=== PATIENT | female | born 1995 | race Caucasian/White ===

== ENCOUNTER 2017-02-10 05:33 | Observation (INO) | payer BC ==
[2017-02-05 13:50] VITALS: BMI 32.0
--- NOTE | 2017-02-05 14:20 | PAT Medication Instructions ---
Service Date February 05, 2017. Current Home Medication List Fluoxetine (Prozac), 40 MG PO BID Omeprazole (Prilosec), 40 MG PO QAM Trazodone Hcl (Trazodone), 50 MG PO HS Medication Instructions For Your Scheduled Surgery - Take the following medications the morning of surgery with a sip of water: Omeprazole (Prilosec), 40 MG PO QAM Fluoxetine (Prozac), 40 MG PO BID - Take the following medications as scheduled the night before surgery: Trazodone Hcl (Trazodone), 50 MG PO HS Fluoxetine (Prozac), 40 MG PO BID If you have any questions please call us at [phone] or [phone] ( Camila) or [phone]
[2017-02-05 15:16] LABS: BASO % 0.4 %; BASO ABS # 0.03 K/uL (0-0.2); COMPLETE YES; HEMATOCRIT 40.5 % (37-47); LYMPH % 23.1 %; LYMPH ABS # 1.69 K/uL (1.2-3.4); MEAN CELL VOLUME 88.8 fL (80-100); MEAN CORPUSCULAR HEMOGLOBIN 28.5 pg (25-34); MEAN CORPUSCULAR HGB CONC 32.1 g/dl (32-36); MEAN PLATELET VOLUME 9.6 fL (7.4-10.4); MONO % 6.6 %; NEUT % 68.9 %; PLATELET COUNT 310 K/uL (130-400); RED BLOOD COUNT 4.56 M/uL (4.2-5.4); WHITE BLOOD COUNT 7.32 K/uL (4.8-10.8)
[2017-02-05 15:33] LABS: PROTHROMBIN TIME (PATIENT) 10.2 SECONDS (9.0-12.0)
[2017-02-05 16:21] LABS: CALCIUM 8.8 mg/dl (8.5-10.1); CREATININE 0.8 mg/dl (0.60-1.20); POTASSIUM 4.7 mmol/L (3.5-5.1)
[~2017-02-10] VITALS: Ht 160 cm; Wt 83.4 kg
[2017-02-10] VITALS (9 sets, daily range): BP systolic 106–125; BP diastolic 68–80; PULSE 69–89; TEMP 36.7–37.1; O2SAT 91–99; Ht 160 cm; Wt 83.4 kg
[~2017-02-10 05:33] MED LIST: FLUO40CA8 PO; PRLSR20 PO; TRAZ50TA35 PO
[2017-02-10] MEDS ORDERED: ENOXAPARIN 40 MG/0.4 ML SYR SQ SCH (06:00)
[2017-02-10] MEDS ORDERED: LACTATED RINGER'S 1000ML 1,000 ML IV SCH (06:00)
[2017-02-10] MEDS ORDERED: CEFAZOLIN 2000 MG/60 ML D5W IV SCH (06:00)
[2017-02-10] MEDS ORDERED: ROCURONIUM BROMIDE 10 MG/ML 5 ML VIAL ONE (06:29)
[2017-02-10] MEDS ORDERED: GLYCOPYRROLATE INJ 0.2 MG/ML VIAL ONE (06:29)
[2017-02-10] MEDS ORDERED: DEXAMETHASONE SOD INJ 4 MG/ML VIAL ONE (06:29)
[2017-02-10] MEDS ORDERED: HYDROmorphone INJ 2 MG/ML SYR/VIAL ONE (06:29)
[2017-02-10] MEDS ORDERED: FENTANYL CITRATE INJ 50 MCG/1 ML 2 ML VIAL ONE ×3 (06:29→10:21)
[2017-02-10] MEDS ORDERED: PROPOFOL IV EMULSION 10 MG/ML 20 ML VIAL IV ONE ×2 (06:29→09:26)
[2017-02-10] MEDS ORDERED: LIDOCAINE HCL 2% 2 ML VIAL (20MG/ML) ONE (06:29)
[2017-02-10] MEDS ORDERED: MIDAZOLAM HCL 1 MG/ML 2ML VIAL ONE (06:29)
[2017-02-10] MEDS ORDERED: NEOSTIGMINE METHYLSULFATE 5 MG/5 ML SYR ONE (06:29)
[2017-02-10] MEDS ORDERED: ONDANSETRON INJ 2 MG/ML 2 ML VIAL ONE ×3 (06:29→07:36)
[2017-02-10] MEDS ORDERED: LARYING-O-JET KIT (LTA) EXT ONE ×2 (06:47)
--- NOTE | 2017-02-10 06:58 | History & Physical Bridge Note ---
H&P Re-Evaluation Bridge Note: I have examined the patient, reviewed the History & Physical and in the interval since the performance of the History & Physical I have noted the following changes of clinical significance: No changes noted
[2017-02-10] MEDS ORDERED: BUPIVACAINE 0.25% 30 ML VIAL ONE (07:03)
[2017-02-10] MEDS ORDERED: LIDOCAINE/EPINEPHRINE 1% 20 ML VIAL ONE (07:03)
[2017-02-10] MEDS ORDERED: NURSING VERBAL MED ORDER ONE (07:18)
[2017-02-10] MEDS ORDERED: SCOPOLAMINE 1.5 MG TDSY TD ONE (07:19)
[2017-02-10] MEDS ORDERED: ESMOLOL HCL 10 MG/ML 10 ML VIAL ONE (07:54)
[2017-02-10] MEDS ORDERED: ONDANSETRON INJ 2 MG/ML 2 ML VIAL IV PRN ×2 (08:00→11:00)
[2017-02-10] MEDS ORDERED: HYDROmorphone INJ 1 MG/ML SYR IV PRN (08:00)
[2017-02-10] MEDS ORDERED: ATROPINE SULFATE 0.1 MG/ML 5ML SYR IV PRN (08:00)
[2017-02-10] MEDS ORDERED: EpHEDrine SULFATE INJ 50 MG/ML AMP IV PRN (08:00)
--- NOTE | 2017-02-10 10:52 | [facility] Post Operative Brief Note ---
Immediate Operative Summary Operative Date February 10, 2017. Pre-Operative Diagnosis Bilateral Breast Hypertrophy Post-Operative Diagnosis Bilateral Breast Hypertrophy Procedure(s) Performed Bilateral Breast Reduction Surgeon Dr. Aponte Seed Analyst Surgeon(s) Sobeida Marie Estimated Blood Loss 25 ml Findings bilateral NACs pink and viable at close of case Specimens Permanent Specimens A: Left Breast Tissue =628 Grams B: Right Breast Tissue = 490 Grams Drains PAM x2 Anesthesia GET Complication(s) None Disposition Recovery Room / PACU
[2017-02-10] MEDS ORDERED: ACETAMINOPHEN 325 MG TAB PO PRN (11:00)
[2017-02-10] MEDS ORDERED: DiphenhydrAMINE HCL 50 MG/ML VIAL IV PRN (11:00)
[2017-02-10] MEDS ORDERED: OXYCODONE/ACETAMINOPHEN 5-325 TAB PO PRN (11:00)
[2017-02-10] MEDS ORDERED: MoRPHine SULFATE 2 MG/ML CARP IV PRN ×2 (11:00)
[2017-02-10] MEDS ORDERED: MoRPHine SULFATE 4 MG/ML 1 ML CARP\\VIAL IV PRN (11:00)
[2017-02-10] MEDS ORDERED: OXAZEPAM 10MG CAP PO PRN (11:00)
[2017-02-10] MEDS ORDERED: PROMETHAZINE HCL INJ 12.5 MG in SODIUM CHLORIDE 0.9% 50ML 50 ML IV PRN (11:00)
[2017-02-10] MEDS: FENTANYL CITRATE INJ 50 MCG/1 ML 2 ML VIAL IV PRN ×4 (11:15→11:30)
[2017-02-10] MEDS ORDERED: IV FLUIDS COMPLETED PRN (12:00)
--- NOTE | 2017-02-10 12:27 | Anesthesiology Progress Note ---
Anesthesia Post Op Note Date & Time February 10, 2017 at 12:27 Vital Signs Pain Intensity: 3 Vital Signs Past 12 Hours Date Time Temp Pulse Resp B/P Pulse Ox O2 Delivery O2 Flow Rate FiO2 02/10/17 11:52 36.4 02/10/17 11:51 135/74 02/10/17 11:48 90 15 02/10/17 11:48 90 15 97 02/10/17 11:46 138/74 02/10/17 11:43 88 17 02/10/17 11:43 87 17 97 02/10/17 11:41 134/71 02/10/17 11:38 89 15 02/10/17 11:38 86 15 97 02/10/17 11:36 134/69 02/10/17 11:33 90 14 02/10/17 11:33 91 14 97 02/10/17 11:31 136/67 02/10/17 11:28 Nasal Cannula 3 02/10/17 11:28 90 15 97 02/10/17 11:28 90 15 02/10/17 11:26 135/65 02/10/17 11:23 91 15 02/10/17 11:23 89 15 97 02/10/17 11:21 126/68 02/10/17 11:20 125/65 02/10/17 11:08 36.6 87 16 125/65 97 Mask 10 02/10/17 05:58 36.7 69 16 106/68 99 Room Air Notes Mental Status: alert / awake / arousable, participated in evaluation Pt Amnestic to Procedure: Yes Nausea / Vomiting: adequately controlled Pain: adequately controlled Airway Patency, RR, SpO2: stable & adequate BP & HR: stable & adequate Hydration State: stable & adequate Anesthetic Complications: no major complications apparent
[2017-02-10] MEDS: LACTATED RINGER'S 1000ML 1,000 ML IV SCH ×2 (13:15→23:43)
[2017-02-10] MEDS: CEFAZOLIN IV 2,000 MG in DEXTROSE 5% 50ML 50 ML IV SCH ×2 (15:35→23:43)
--- NOTE | 2017-02-10 16:54 | OPERATIVE REPORT ---
DATE OF OPERATION: 02/10/2017 PREOPERATIVE DIAGNOSIS: Bilateral symptomatic macromastia. POSTOPERATIVE DIAGNOSIS: Same. PROCEDURE: Bilateral reduction mammoplasty with inferior pedicle. SURGEON: Lisset Aponte MD [employer] ARCHITECT: Sobeida Barney PA-C ANESTHESIA: General. COMPLICATIONS: None. INDICATION FOR THE PROCEDURE: The patient is a 21-year-old female who presented to my office as a 36 double G bra size with complaints of neck, shoulder pain as well as headaches that failed conservative measures to improve her symptoms. After discussion, she elects to proceed with breast reduction surgery. BRIEF DESCRIPTION OF THE PROCEDURE: The risks, benefits and alternatives of the procedure were explained to the patient who agreed and signed consent. She was identified and marked in the preoperative holding area. She was brought to the operating room where she was positioned supine and placed under anesthesia without incident. Surgical site was prepped and draped sterilely. A time-out procedure was performed. I began with the left side which was the larger of the 2 breasts. The markings were reassessed and a 7 cm pedicle was marked. A 1% lidocaine with epinephrine was used to anesthetize the planned incisions. A 38 mm cookie cutter was used to circumscribe the nipple-areolar complex. The previously marked 7 cm pedicle was incised using a 15 blade scalpel and deepithelialized. I began with medial dissection of the pedicle using electrocautery. Cautery was used to incise through dermis and breast parenchyma and down the chest wall, taking care not to undermine the pedicle during dissection. A similar procedure was undertaken on the lateral aspect of the pedicle again taking care not to undermine. Lastly, the pedicle was dissected out superiorly using electrocautery. This was carried down to chest wall. I then began excision of medial breast tissue followed by lateral aspect of the breast tissue. A 15 blade scalpel was used to make the inframammary fold incision. Electrocautery was used to deepen the incision through dermis and breast parenchyma. Dissection was then carried superiorly to the level of the superior incision. Superior incision was then incised using 15 blade scalpel and again dissected using electrocautery. A similar procedure was taken laterally and then around the keyhole portion of the incision. Care was taken to leave some fat on the lateral pectoral fascia in order to protect the T4 intercostal nerve. Hemostasis was achieved with electrocautery. Specimen was removed in its entirety and passed off for weighing. Additional resection was undertaken until a maximal resection weight of 628 grams was achieved on the left side and there was uniform pedicle and flap. I did try to dissect the pedicle more in a central mound type of technique underneath the nipple in order to preserve more glandular brush tissue and ducts due to the patient's young age and desire for a childbearing and . The wound was irrigated with normal saline. Hemostasis was achieved with electrocautery. A 0.25% Marcaine plain was used to anesthetize the incisions as well as pectoralis fascia. A 15-Tamazight Vinicio drain was brought out through a separate stab incision. The nipple-areolar complex was advanced into the keyhole using 2-0 Vicryl deep dermal suture. Wound was first closed in a lateral to mid breast direction using 2-0 Vicryl deep dermals and then medial to mid breast using 2-0 Vicryl deep dermals. The vertical limb was also approximated using 2-0 Vicryl deep dermal sutures. The nipple-areolar complex was inset using 2-0 Vicryl deep dermal sutures. Next, the superficial dermal layer was closed using 2-0 PDO running Quill suture along the inframammary fold and 3-0 PDS for the vertical limb and nipple-areolar complex closures. Lastly, a 3-0 Monocryl running subcuticular suture was placed. A similar procedure was undertaken on the right side with maximal resection weight of 490 grams. At the end of the case, both nipple-areolar complexes were pink and viable without evidence of vascular compromise. The breasts appeared reasonably symmetric. Dermabond was placed around the nipple-areolar complex, and the inframammary folds as well as vertical limb incisions were dressed using Dermabond Prineo. Following this, Dermabond and dry dressing and surgical bra were placed. The patient was awakened and transferred to the recovery room in satisfactory condition. Sobeida Barney was present and scrubbed throughout the entire procedure and was instrumental in providing retraction during dissection of the pedicle as well as assisting in simultaneous wound closure. I attest to the content of the Intraoperative Record and any orders documented therein. Any exceptions are noted below. DIONI
[2017-02-10] MEDS: OXYCODONE/ACETAMINOPHEN 5-325 TAB PO PRN ×2 (18:06→21:03)
[2017-02-10] MEDS: FLUOXETINE HCL 20 MG CAP PO SCH (20:59)
[2017-02-10] MEDS ORDERED: TRAZODONE HCL 50 MG TAB PO SCH (21:00)
[2017-02-11 03:15] VITALS: BP 111/79; PULSE 89; TEMP 36.2; O2SAT 90
[2017-02-11] MEDS: OXYCODONE/ACETAMINOPHEN 5-325 TAB PO PRN (03:37)
[2017-02-11 03:45] VITALS: TEMP 37.1
[2017-02-11] MEDS: FLUOXETINE HCL 20 MG CAP PO SCH (07:31)
[2017-02-11 07:39] VITALS: BP 112/74; PULSE 97; TEMP 37.4; O2SAT 91
--- NOTE | 2017-02-11 08:17 | Surgery Progress Note ---
Surgery Progress Note Date of Service February 11, 2017. Subjective Post OP Day: 1 + complaints (itchy), + feeling well, + pain controlled Objective Vital Signs: Date Time Temp Pulse Resp B/P Pulse Ox O2 Delivery O2 Flow Rate FiO2 02/11/17 07:39 37.4 97 16 112/74 91 Room Air 02/11/17 03:45 37.1 02/11/17 03:15 36.2 89 18 111/79 90 Room Air 02/10/17 23:30 91 Room Air 02/10/17 23:15 37.1 89 16 110/74 92 Room Air 02/10/17 19:30 37.1 78 16 119/79 92 Room Air 02/10/17 16:05 36.8 89 16 125/79 99 Nasal Cannula 2.0 02/10/17 15:30 Nasal Cannula 2.0 02/10/17 15:05 36.9 80 16 124/80 97 Nasal Cannula 2.0 02/10/17 14:05 81 16 117/78 97 2.0 02/10/17 13:35 36.9 82 16 116/77 98 2.0 02/10/17 13:05 97 Nasal Cannula 2.0 02/10/17 13:05 37.0 86 16 114/71 97 Nasal Cannula 2.0 02/10/17 13:05 97 Nasal Cannula 2.0 02/10/17 12:51 122/78 02/10/17 12:47 74 17 97 02/10/17 12:47 74 17 02/10/17 12:46 125/70 02/10/17 12:42 80 15 97 02/10/17 12:42 78 15 02/10/17 12:41 134/71 02/10/17 12:37 77 16 02/10/17 12:37 77 16 97 02/10/17 12:36 125/77 02/10/17 12:32 78 16 02/10/17 12:32 76 16 97 02/10/17 12:31 126/75 02/10/17 12:27 84 22 02/10/17 12:27 81 22 97 02/10/17 12:26 127/75 02/10/17 12:23 84 19 97 02/10/17 12:23 84 19 02/10/17 12:21 134/68 02/10/17 12:18 80 16 02/10/17 12:18 80 16 97 02/10/17 12:16 131/67 02/10/17 12:13 82 15 02/10/17 12:13 81 15 97 02/10/17 12:11 128/69 02/10/17 12:08 92 16 97 02/10/17 12:08 92 16 02/10/17 12:06 126/69 02/10/17 12:03 88 15 02/10/17 12:03 88 15 97 02/10/17 12:01 133/71 02/10/17 11:58 89 15 02/10/17 11:58 88 15 97 02/10/17 11:56 128/68 02/10/17 11:53 85 14 02/10/17 11:53 85 14 97 02/10/17 11:52 36.4 02/10/17 11:51 135/74 02/10/17 11:48 90 15 02/10/17 11:48 90 15 97 02/10/17 11:46 138/74 02/10/17 11:43 88 17 02/10/17 11:43 87 17 97 02/10/17 11:41 134/71 02/10/17 11:38 89 15 02/10/17 11:38 86 15 97 02/10/17 11:36 134/69 02/10/17 11:33 90 14 02/10/17 11:33 91 14 97 02/10/17 11:31 136/67 02/10/17 11:28 Nasal Cannula 3 02/10/17 11:28 90 15 97 02/10/17 11:28 90 15 02/10/17 11:26 135/65 02/10/17 11:23 91 15 02/10/17 11:23 89 15 97 02/10/17 11:21 126/68 02/10/17 11:20 125/65 02/10/17 11:08 36.6 87 16 125/65 97 Mask 10 Physical Exam: Vinicio drainage (25cc serosanguineous) General Appearance: WD/WN, no apparent distress Incision(s): clean, dry, intact, no erythema, findings (nipples pink and with sensation bilat) Assessment & Plan s/p bilat breast reduction 1. doing well- drains removed. d/c home with f/u in office tomorrow
--- NOTE | 2017-02-11 08:20 | Discharge Instructions ---
Discharge Instructions Date of Service February 11, 2017. Admission Reason for Admission: Breast Hypertrophy Discharge Discharge Diagnosis / Problem: macromastia Discharge Goals Goal(s): Decrease discomfort Activity Recommendations Activity Limitations: per Instructions/Follow-up section ACTIVITY RECOMMENDATIONS: __Normal activities _x_No bending, lifting or straining __No driving __Driving allowed when you are off pain medications _x_Walking permitted __You should have help at home for ___ days DRESSINGS: __No dressings required _x_Keep dressings dry/in place until first office visit __Remove dressings ___ and leave dressings off __Apply ice ___ days __Remove dressings and reapply garment __Apply antibiotic ointment (Bacitracin, Neosporin, etc) to wounds 3-4 times/ day for 10 days BATHING: _x_Keep dressings dry _x_Sponge bathing permitted __Showering permitted _x_No swimming, hot tubs or soaking in a tub MEDICATIONS: Resume previous medications unless instructed otherwise by your surgeon. _x_Do not use aspirin, Motrin, Advil or Ibuprofen as these may promote bleeding. Please use Tylenol. _x_Prescription(s) provided:pain medication and lovenox were provided at your last office visit OTHER INSTRUCTIONS: __Record drain output 2-3 times per day SPECIAL CARE INSTRUCTIONS: * It is normal to have a mild fever after surgery. If your temperature is higher than 101.5 degrees F, please call the office at [phone]. * Constipation is a typical side effect of pain medication. An over-the- counter stool softener will help relieve this. * Leaking around surgical drains may occur and should not cause concern. Sometimes these drains become clogged. If this happens, remove the bulb and milk the clot out of the tube, then replace the bulb. * Drainage from wounds after liposuction is normal and should be expected. Garments will become soiled. You should protect furniture and bedding. This drainage should mostly subside within 2-3 days. Leave garments in place unless instructed to remove them. * If you have unusual drainage from a wound or are concerned you have an infection or have any questions or concerns, please call the office at [phone]. FOLLOW UP VISIT: If not already scheduled, please call the office, , when you return home after surgery to schedule an appointment to be seen in _1_ days. . Current Hospital Diet Patient's current hospital diet: Regular Diet Discharge Diet Recommended Diet: Regular Diet Procedures Procedures Performed: Bilateral Breast Reduction Pending Studies Studies pending at discharge: yes List of pending studies: pathology Medical Emergencies . Who to Call and When: Medical Emergencies: If at any time you feel your situation is an emergency, please call 911 immediately. . Non-Emergent Contact Non-Emergency issues call your: Primary Care Provider, Surgeon . "Provider Documentation" section prepared by Sobeida Barney. . VTE Core Measure Inpt VTE Proph given/why not?: SCD's [place] Drug Monitoring Program Search Results: no issues identified
[2017-02-11] MEDS ORDERED: PANTOprazole SOD 40 MG TAB PO SCH (09:00)
[2017-02-11] MEDS ORDERED: ENOXAPARIN 40 MG/0.4 ML SYR SQ SCH (09:00)
[2017-02-11] MEDS ORDERED: MULTIVITAMIN TAB PO SCH (09:00)
[2017-02-11] MEDS ORDERED: NURSING VERBAL MED ORDER ONE ×2 (10:30→11:15)
[2017-02-11 10:56] VITALS: BP 118/76; PULSE 78; TEMP 36.4; O2SAT 93
--- NOTE | 2017-02-11 12:47 | Discharge Summary ---
Discharge Summary Date of Service February 11, 2017. Admission Date/Reason February 10, 2017 at 11:01 Breast Hypertrophy. Discharge Date/Disposition February 11, 2017 Home Diagnosis Principal Diagnosis: breast hypertrophy Procedure(s) Performed bilateral breast reduction Medication Reconciliation Continued Medications: Fluoxetine (Prozac) 40 Mg Cap 40 MG PO BID, CAP Omeprazole (Prilosec) 20 Mg Capcr 40 MG PO QAM, CAP Trazodone Hcl (Trazodone) 50 Mg Tab 50 MG PO HS, TAB Admission Physical Exam As per Admitting History & Physical. Hospital Course Patient presented to [facility] with history of symptomatic macromastia. She was taken to the OR and underwent bilateral breast reduction. She tolerated the procedure well and was taken to recovery. On POD #1 the patient complained of itching. This was treated with Benedryl. On exam, she had serosanguineous drainage in belkis drains. They were removed. Her incisions were CDI and nipples pink and with sensation bilaterally. She was discharged home in stable condition with instructions to f/u in the office. Discharge Instructions Please refer to the electronic Patient Visit Report (Discharge Instructions) for additional information.
== END 2017-02-11 13:14 | disposition home or self-care (01) ==
LOC: ENRESERVTM → ENRESERVDT → C.ACU 05:33 → C.MSW 11:01
PROVIDERS: ADMIT Plastic Surgery; ATTEND Plastic Surgery
DX: N62 Hypertrophy of breast (principal); D68.51 Activated protein C resistance; Z90.49 Acquired absence of other specified parts of digestive tract; Z82.49 Family history of ischemic heart disease and other diseases of the circulatory system